=== PATIENT | male | born 1995 | race Asian ===

== ENCOUNTER 2020-06-20 00:21 | Emergency (ER) | payer OTHER ==
[2020-06-20 00:44] VITALS: BP 134/86
--- NOTE | 2020-06-20 00:53 | ED Physician Documentation ---
PD HPI HEENT - Stated complaint Stated Complaint: EYE SWELLING - Chief complaint Chief Complaint: Heent - History obtained from History obtained from: Patient - History of Present Illness Timing - onset: How many hours ago (5) Timing - duration: Hours (5) Timing - details: Abrupt onset (he noted onset of eyelid swelling and feeling scratchy throat that increased over few hours. No noted cause/trigger to it. Had been outside/motorcycle riding class through the day, but is outdoors often. No new foods, meds, soaps, etc. Symptoms peaked and have started to decrease enroute here.), Still present Location: Other (swelling face and some in throat. No dyspnea nor wheezing. No nausea.) Worsens: Swalllowing Associated symptoms: Facial swelling. No: Fever, Congestion, Cough Similar symptoms before: Has not had sx before Recently seen: Not recently seen Review of Systems Constitutional: denies: Fever Nose: denies: Rhinorrhea / runny nose, Congestion, Sinus pressure / pain Throat: denies: Sore throat Respiratory: denies: Dyspnea, Cough, Wheezing GI: denies: Abdominal Pain, Nausea, Vomiting Skin: denies: Rash (denies generalized itching) PD PAST MEDICAL HISTORY - Past Medical History Past Medical History: No Cardiovascular: None Respiratory: None Neuro: None Endocrine/Autoimmune: None GI: None : None HEENT: None Psych: None Musculoskeletal: None Derm: None - Past Surgical History Past Surgical History: Yes General: Appendectomy - Present Medications Home Medications: Ambulatory Orders Medication Instructions Recorded Confirmed Cetirizine [ZyrTEC] 10 mg PO BID #15 tablet 06/20/20 dexAMETHasone [Decadron] 4 mg PO DAILY #5 tablet 06/20/20 - Allergies Allergies/Adverse Reactions: Allergies Allergy/AdvReac Type Severity Reaction Status Date / Time No Known Drug Allergies Allergy Verified 06/20/20 00:44 - Social History Does the pt smoke?: No Smoking Status: Never smoker Does the pt drink ETOH?: No Does the pt have substance abuse?: No - Immunizations Immunizations are current?: Yes - POLST Patient has POLST: No PD ED PE NORMAL - Vitals Vital signs reviewed: Yes - General General: Alert and oriented X 3, No acute distress, Well developed/nourished - HEENT HEENT: Moist mucous membranes, Dentition benign, Other (mild edema of uvula and posterior soft palatte. Otherwise swelling periorbital and face generally, some of outer lips. No neck swelling. No adenopathy. ) - Neck Neck: Supple, no meningeal sign, No adenopathy - Cardiac Cardiac: RRR, No murmur - Respiratory Respiratory: Clear bilaterally - Derm Derm: Normal color, Warm and dry, No rash Results - Vitals Vitals: Vital Signs - 24 hr 06/20/20 00:40 Temperature 36.6 C Heart Rate 92 Respiratory 16 Rate Blood Pressure 134/86 H O2 Saturation 98 Oxygen O2 Source Room air PD MEDICAL DECISION MAKING - ED course Complexity details: considered differential (seems likely an allegic reaction, not clear the trigger. It is past the peak of symptoms and starting to improve without treatment. Can add antihistamine and steroid dose. May or may not need ongoing treatment for few days, depending on speed of resolution. ), d/w patient Departure - Departure Disposition: 01 Home, Self Care Clinical Impression: Allergic reaction Qualifiers: Encounter type: initial encounter Qualified Code(s): T78.40XA - Allergy, u nspecified, initial encounter Condition: Stable Record reviewed to determine appropriate education?: Yes Instructions: ED Allergic Reaction General Other Follow-Up: [facility] [Provider Group] Prescriptions: dexAMETHasone [Decadron] 4 mg PO DAILY #5 tablet Cetirizine [ZyrTEC] 10 mg PO BID #15 tablet Comments: See how you feel in the morning and if the reaction seems completely cleared, then normal activity and no further medicines are needed. If you are having a little bit of throat scratchiness or swelling around the eyes still, then be less active for a day and also continue the steroid Decadron and cetirizine antihistamines as prescribed for 5 to 7 days. Allergic reactions like this sometimes will just be brief and then gone. Other times they may linger for a couple of days in which case continuing the medication would be indicated. If this is improved over the next 2 to 3 days, then you will want to just see if occurs again in the near future or with any pattern to try to identify the cause of the reaction or trigger of the reaction. Otherwise allergic reactions can be rather isolated to random environmental irritants and most often do not recur. Discharge Date/Time: 06/20/20 01:16
[2020-06-20] MEDS ORDERED: DEXAMETHASONE 10 MG/ML VIAL PO STA (01:04)
[2020-06-20] MEDS ORDERED: CETIRIZINE 10 MG TABLET PO STA (01:04)
[2020-06-20] MEDS ORDERED: CHERRY SYRUP 10 ML UDC PO ONE (01:04)
== END 2020-06-20 01:16 | disposition home or self-care (01) ==
LOC: ED 00:21
DX: T78.40XA Allergy, unspecified, initial encounter (principal); X58.XXXA Exposure to other specified factors, initial encounter
CPT/HCPCS: 99282; 99284; A9270

== ENCOUNTER 2021-02-25 15:22 | Emergency (ER) | payer OTHER ==
[2021-02-25 15:41] VITALS: BP 152/96
[2021-02-25] MEDS ORDERED: cefTRIAXone 1 GM VIAL IM STA (15:52)
[2021-02-25] MEDS ORDERED: DEXAMETHASONE 10 MG/ML VIAL PO STA (15:52)
[2021-02-25] MEDS ORDERED: CHERRY SYRUP 10 ML UDC PO ONE (15:52)
[2021-02-25] MEDS ORDERED: LIDOCAINE 1% 2 ML VIAL MC ONE (15:52)
--- NOTE | 2021-02-25 15:54 | ED Physician Documentation ---
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 He states that he has had some issue with this ear pain over the past 2 weeks and last week he went into the doctor was prescribed some Augmentin he has been taking it for 3 days and despite that he developed pain in his ear today with some drainage and he was told to come to the emergency department. He has not had fever has not had vomiting he does have some pain in his neck and pain when opening his jaw. Review of Systems Constitutional: denies: Fever Eyes: denies: Decreased vision Ears: reports: Ear pain, Drainage/discharge, Tinnitus/ringing Nose: reports: Rhinorrhea / runny nose, Congestion Throat: denies: Sore throat Cardiac: denies: Chest pain / pressure, Palpitations Respiratory: reports: Cough. denies: Dyspnea GI: denies: Vomiting PD PAST MEDICAL HISTORY - Past Medical History Past Medical History: No Cardiovascular: None Respiratory: None Neuro: None Endocrine/Autoimmune: None GI: None : None HEENT: None Psych: None Musculoskeletal: None Derm: None - Past Surgical History Past Surgical History: Yes General: Appendectomy - Present Medications Home Medications: Ambulatory Orders Medication Instructions Recorded Confirmed Amox/Clav 875/125 [Augmentin 1 tab PO BID 02/25/21 02/25/21 875/125 Tab] Azithromycin [Zithromax] 250 mg PO DAILY #6 tablet 02/25/21 - Allergies Allergies/Adverse Reactions: Allergies Allergy/AdvReac Type Severity Reaction Status Date / Time No Known Drug Allergies Allergy Verified 06/20/20 00:44 - Social History Does the pt smoke?: No Smoking Status: Never smoker Does the pt drink ETOH?: No Does the pt have substance abuse?: No - Immunizations Immunizations are current?: Yes - POLST Patient has POLST: No PD ED PE NORMAL - Vitals Vital signs reviewed: Yes (hypertension ) - General General: Alert and oriented X 3, No acute distress, Well developed/nourished - HEENT HEENT: Atraumatic, PERRL, EOMI, Other (The right TM is markedly infammed with distortion of the landmarks. I am not able to see a rent in the membrane or fluid in the canal. ) - Neck Neck: Supple, no meningeal sign, No bony TTP, Other (shoddy adenopathy right. 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, No motor deficit, No sensory deficit, Normal speech Eye Opening: Spontaneous Motor: Obeys Commands Verbal: Oriented GCS Score: 15 - Psych Psych: Normal mood, Normal affect Results - Vitals Vitals: Vital Signs - 24 hr 02/25/21 15:38 Temperature 37.1 C Heart Rate 92 Respiratory 16 Rate Blood Pressure 152/96 H O2 Saturation 99 Oxygen O2 Source Room air PD MEDICAL DECISION MAKING - ED course Complexity details: reviewed results, re-evaluated patient, considered differential, d/w patient ED course: 26-year-old male on Augmentin has had progression of his symptoms and on exam has marked inflammation to the right TM. Here in the emerge department we provided a dose of dexamethasone and a dose of Rocephin and we will add azithromycin to his antibiotic regimen. Departure - Departure Disposition: 01 Home, Self Care Clinical Impression: Otitis media Qualifiers: Otitis media type: suppurative Chronicity: acute Laterality: right Recurrence: recurrent Spontaneous tympanic membrane rupture: with spontaneous rupture Qualified Code(s): H66.014 - Acute suppurative otitis media with spontaneous rupture of ear drum, recurrent, right ear Condition: Stable Instructions: ED Otitis Media Acute Adult Follow-Up: MAT REARDON MD [Primary Care Provider] - Prescriptions: Azithromycin [Zithromax] 250 mg PO DAILY #6 tablet Comments: Today we have given you a dose of dexamethasone and Rocephin to treat middle ear infection. It looks like you may be failing the Augmentin and our recommendation is to add the a azithromycin along with the Augmentin.
== END 2021-02-25 16:24 | disposition home or self-care (01) ==
LOC: ED 15:22
DX: H66.014 Acute suppurative otitis media with spontaneous rupture of ear drum, recurrent, right ear (principal); M54.2 Cervicalgia
CPT/HCPCS: 96372; 99283; A9270